=== PATIENT | male | born 1970 | race Caucasian/White ===

== ENCOUNTER 2022-12-21 05:32 | Day surgery (SDC) | payer BC ==
[2022-12-14 14:37] LABS: BASOPHILS # (AUTO) 0.1 X10'3 (0-0.2); BASOPHILS % (AUTO) 0.7 % (0-1); EOSINOPHILS # (AUTO) 0.1 X10'3 (0-0.9); EOSINOPHILS % (AUTO) 1.1 % (0-6); LYMPHOCYTES # (AUTO) 1.4 X10'3 (1.1-4.8); LYMPHOCYTES % (AUTO) 18.9 % (21-51); MEAN CORPUSCULAR HEMOGLOBIN 29.1 PG (27.0-31.0); MEAN CORPUSCULAR HGB CONC 33.3 g/dL (33.0-36.5); MEAN CORPUSCULAR VOLUME 87.5 FL (78-98); MONOCYTES # (AUTO) 0.6 X10'3 (0-0.9); MONOCYTES % (AUTO) 8.7 % (2-12); NEUTROPHILS # (AUTO) 5.1 X10'3 (1.8-7.7); NEUTROPHILS % (AUTO) 70.6 % (42-75); PRE OP HEMATOCRIT 46.3 % (42.0-52.0); PRE OP HEMOGLOBIN 15.4 g/dL (14.0-17.9); PRE OP PLATELET COUNT 239 X10'3 (140-440); RED BLOOD COUNT 5.29 X10'6 (4.70-6.10); RED CELL DISTRIBUTION WIDTH 13.6 % (11.5-14.5)
[2022-12-14 14:52] LABS: PRE OP PROTIME 10.9 SECONDS (9.0-12.0)
[2022-12-14 14:53] LABS: ALBUMIN 4.1 G/DL (3.4-5.0); ALBUMIN/GLOBULIN RATIO 1.2 (1.1-1.5); ALKALINE PHOSPHATASE 55 IU/L (46-116); BLOOD UREA NITROGEN 21 MG/DL (7-18); BUN/CREATININE RATIO 18.6 (10.0-20.0); CALCIUM 9.6 MG/DL (8.5-10.1); CHLORIDE 103 MMOL/L (99-107); CREATININE 1.13 MG/DL (0.60-1.10); PRE OP ALT 28 U/L (30-65); PRE OP ANION GAP 7 (8-16); PRE OP AST 20 U/L (10-37); PRE OP BILIRUB, TOTAL 0.4 MG/DL (0.0-1.0); PRE OP GLUCOSE 88 MG/DL (70-104); PRE OP SODIUM 139 MMOL/L (135-145); TOTAL CARBON DIOXIDE 29.3 MMOL/L (24-32); TOTAL PROTEIN 7.5 G/DL (6.4-8.2); eGFR 68 ML/MIN
[~2022-12-21] VITALS: Ht 193 cm; Wt 121.4 kg
[2022-12-21] VITALS (11 sets, daily range): BP systolic 106–132; BP diastolic 71–86
[~2022-12-21 05:32] MED LIST: MOME17SP11 BOTHNARES; NAPR220T67 PO; OLME-11 PO; ceFAZolin inj. 3,000 MG in normal saline 100ml IV soln 100 ML IV ONE; famotidine 20mg tablet PO ONE; ringers solution, lacted 1,000 ML IV SCH
[2022-12-21] MEDS ORDERED: fentaNYL/PF 50MCG/1 ML 2ML syringe ONE (06:00)
[2022-12-21] MEDS ORDERED: midazolam 1 mg/ML 2ml injection ONE (06:00)
[2022-12-21] MEDS ORDERED: cocaine 4% topical solution 4ml bottle ONE (06:41)
[2022-12-21] MEDS ORDERED: LIDOcaine 1% W/epiNEPHrine 1:100,000 20ml vial ONE ×2 (06:42)
[2022-12-21] MEDS ORDERED: oxymetazoline 15 ML nasal spray NS ONE (06:42)
[2022-12-21] MEDS ORDERED: bacitracin 15gm ointment TP ONE ×2 (06:42→07:15)
[2022-12-21] MEDS ORDERED: salt irrigation nasal spray 45 ML SPRAY NS PRN (06:55)
[2022-12-21] MEDS ORDERED: LIDOCAINE 1%/EPI 1:100,000 inj. 10 ML multi-dose vial IJ ONE (07:15)
[2022-12-21] MEDS ORDERED: labetalol 20mg/4ml (5mg/ml) syringe IV PRN (07:15)
[2022-12-21] MEDS ORDERED: ondansetron/PF 4mg/2ml inj IV PRN (07:15)
[2022-12-21] MEDS ORDERED: morphine 4 MG/ML inj SYRINge IV PRN (07:15)
[2022-12-21] MEDS ORDERED: morphine 2 MG/ML inj. syringe IV PRN (07:15)
[2022-12-21] MEDS ORDERED: ringers solution, lacted 1,000 ML IV SCH (07:15)
[2022-12-21] MEDS ORDERED: cocaine 4% topical solution 4ml bottle TP ONE (07:15)
[2022-12-21] MEDS ORDERED: fentaNYL/PF 50MCG/1 ML 2ML syringe IV PRN ×2 (07:15)
[2022-12-21] MEDS ORDERED: hydrALAZINE 20mg/ml inj. IV PRN (07:15)
[2022-12-21] MEDS ORDERED: sevoflurane 250ml liquid IH ONE (07:26)
--- NOTE | 2022-12-21 09:18 | NUR ---
Received from OR via [facility] TO [facility], accompanied by Anesthesiologist DR HILLIARD and report given by Anesthesiolgist. PT PRESENTS WITH PIV 20G LEFT HAND, NASAL DRESSING CDI, SPO2 98% 6L MASK, LR RUNNING AT 100MLS/HR, VSS. Addendum: 12/21/22 at 0988 by Keerthi Ann RN, RN Amended: Links added.
[2022-12-21] MEDS ORDERED: LIDOcaine 2% (20mg/ml) 5ml vial ONE (09:32)
[2022-12-21] MEDS ORDERED: propofol inj 20 ML IV ONE ×2 (09:32)
[2022-12-21] MEDS ORDERED: dexamethasone sod phosphate 4mg/ml inj. ONE (09:32)
[2022-12-21] MEDS ORDERED: rocuronium 10mg/ml inj IV ONE (09:33)
[2022-12-21] MEDS ORDERED: glycopyrrolate 0.2mg/ml inj ONE (09:33)
[2022-12-21] MEDS ORDERED: ondansetron/PF 4mg/2ml inj ONE (09:33)
[2022-12-21] MEDS ORDERED: neostigmine methylsulfate 1 MG/ML 10ml vial ONE (09:33)
[2022-12-21] MEDS ORDERED: HYDROcodone/acetaminophen 10/325mg tab PO ONE (09:40)
--- NOTE | 2022-12-21 10:58 | NUR ---
ALL DISCHARGE CRITERIA HAS BEEN MET. VSS, PAIN AT TOLERABLE LEVEL. ABLE TO SAFELY AMBULATE AND TRANSFER SELF. IV TAKEN OUT WITHOUT ANY COMPLICATIONS. ALL DISCHARGE INSTRUCTIONS COVERED WITH PATIENT AND ALL QUESTIONS ANSWERED. PATIENT TAKEN OUT VIA WHEELCHAIR TO PERSONAL VEHICLE WHERE FAMILY/FRIEND DROVE PATIENT HOME. Addendum: 12/21/22 at 1102 by Keerthi Ann RN, RN Amended: Links added.
== END 2022-12-21 10:58 | disposition home or self-care (01) ==
LOC: PAS 05:32
PROVIDERS: ATTEND Specialist
DX: S09.92XD Unspecified injury of nose, subsequent encounter (principal); J34.89 Other specified disorders of nose and nasal sinuses; J34.3 Hypertrophy of nasal turbinates; I10 Essential (primary) hypertension; Z72.89 Other problems related to lifestyle; Z98.890 Other specified postprocedural states; Z79.899 Other long term (current) drug therapy; Z79.01 Long term (current) use of anticoagulants; X58.XXXD Exposure to other specified factors, subsequent encounter
CPT/HCPCS: 20912; 30140; 30420; 36415; 80053; 82948; 85025; 85610; 85730; 93005; J0690; J1100; J2250; J2270; J2405; J2704; J2710; J3010; J3490; J7030; J7120; Z7506; Z7508; Z7512; A4215; A4618; A6449; A7000